=== PATIENT | male | born 1930 | race Caucasian/White ===

== ENCOUNTER 2018-01-02 10:32 | Emergency (ER) | payer MEDICARE ==
[~2018-01-02] VITALS: Ht 180.3 cm; Wt 89.0 kg
[~2018-01-02 10:32] MED LIST: ASPI81 PO; CLOP75 PO; FISH300C2 PO; METO50TA PO; TAB-TAB PO; VYTO10TA39 PO
[2018-01-02 11:03] VITALS: BP 148/69; PULSE 63; RESP 18; TEMP 97.6; O2SAT 98
--- NOTE | 2018-01-02 12:23 | RADRPT ---
EXAM DATE/TIME: 01/02/2018 12:14 [facility] COMPARISON: No previous studies available for comparison. INDICATIONS : Palpitations. Low blood pressure. Patient states no chest complaints. MEDICAL HISTORY : None. SURGICAL HISTORY : Stent 10 years ago. ENCOUNTER: Initial ACUITY: 1 day PAIN SCORE: 0/10 LOCATION: Bilateral chest FINDINGS: PA and lateral views of the chest demonstrate the lungs to be symmetrically aerated without evidence of mass, infiltrate or effusion. Mild emphysema. The cardiomediastinal contours are unremarkable. O sseous structures are intact. Degenerative changes thoracic spine. CONCLUSION: No acute disease. Cristofer Adams MD on January 02, 2018 at 12:21 Board Certified Radiologist. This report was verified electronically.
[2018-01-02 14:12] LABS: AUTOMATED NEUTROPHIL # 7.8 TH/MM3 (1.8-7.7); EOSINOPHIL % 0.3 % (0.0-4.0); HEMATOCRIT 42.7 % (39.0-51.0); HEMOGLOBIN 14.8 GM/DL (13.0-17.0); LYMPH % 14.5 % (9.0-44.0); LYMPHOCYTE # 1.4 TH/MM3 (1.0-4.8); MEAN CELL VOLUME 91.9 FL (80.0-100.0); MEAN CORPUSCULAR HEMOGLOBIN 31.9 PG (27.0-34.0); MEAN CORPUSCULAR HGB CONC 34.7 % (32.0-36.0); MEAN PLATELET VOLUME 9.7 FL (7.0-11.0); MONO % 6.1 % (0.0-8.0); MONOCYTE # 0.6 TH/MM3 (0-0.9); NEUT % 79.1 % (16.0-70.0); PLATELET COUNT 141 TH/MM3 (150-450); RED BLOOD COUNT 4.65 MIL/MM3 (4.50-5.90); RED CELL DISTRIBUTION WIDTH 14.5 % (11.6-17.2); WHITE BLOOD COUNT 9.9 TH/MM3 (4.0-11.0)
[2018-01-02 14:19] LABS: BILIRUBIN, URINE NEG (NEG); BLOOD, URINE NEG (NEG); GLUCOSE,URINE 1000 mg/dL (NEG); KETONE, URINE NEG (NEG); NITRITE,URINE NEG (NEG); PH, URINE 6.5 (5.0-8.5); TRANSITIONAL EPI CELLS, URINE <1 /hpf; URINE COLOR YELLOW (YELLW/STRAW); URINE LEUKOCYTE ESTERASE NEG (NEG)
[2018-01-02 14:29] LABS: BICARBONATE 31.5 MEQ/L (21.0-32.0); BLOOD UREA NITROGEN 23 MG/DL (7-18); CALCIUM 9.2 MG/DL (8.5-10.1); CHLORIDE 100 MEQ/L (98-107); CREATININE 1.06 MG/DL (0.60-1.30); GLOMERULAR FILTRATION RATE 66 ML/MIN (>89); GLUCOSE,RANDOM 383 MG/DL (74-106); MAGNESIUM 2.1 MG/DL (1.5-2.5); SODIUM (NA) 135 MEQ/L (136-145)
[2018-01-02 14:32] LABS: TROPONIN I LESS THAN 0.02 NG/ML (0.02-0.05)
[2018-01-02 14:39] LABS: PROTHROMBIN TIME - PATIENT 10.4 SEC (9.8-11.6)
[2018-01-02] MEDS ORDERED: GLIP5TAB8 PO (15:14)
[2018-01-02] MEDS ORDERED: METO50TA PO (15:14)
[2018-01-02] MEDS ORDERED: AMLO5TAB2 PO (15:14)
[2018-01-02] MEDS ORDERED: ATOR40TA16 PO (15:14)
[2018-01-02] MEDS ORDERED: LOSA50TA PO (15:14)
[2018-01-02] MEDS ORDERED: ASPI-516 CHEW (15:14)
--- NOTE | 2018-01-02 15:32 | PD ---
HPI Chief Complaint: Fall Time Seen by Provider: 15:10 Travel History International Travel<30 days: No Contact w/Intl Traveler<30days: No Traveled to known affect area: No History of Present Illness HPI 87 year old male presents to the emergency department for evaluation of 2 falls that occurred on Monday. He states he was walking and then he fell on his bottom, states his legs gave out. He denies any dizziness/lightheadedness before the first fall. He states that he was able to get up and the colicky was going to follow again. He tried additional box. However, before he made to the mailbox, he states he thought slightly lightheaded and his knees buckled causing him to fall. He does state he has been getting short of breath with exertion for approximately 2 weeks. Patient states that his neighbor had to help him up after the fall. He has been ambulatory since then. Patient denies any weakness or dizziness since the fall. Patient does state he had his head, but denies any LOC. No neck pain or back pain. No chest pain or abdominal pain. No vomiting. Patient states his school year nanny is Dr. Dos Santos. He had a stress test 2 weeks ago was told it was the same as a previous stress test. Patient denies any pain at this time. Moderate severity. PFSH Past Medical History Autoimmune Disease: No Blood Disorders: No Cancer: Yes (SKIN CA) Cardiovascular Problems: Yes (1 STENT 10 YEARS AGO) High Cholesterol: Yes Chest Pain: Yes Diabetes: Yes Patient Takes Glucophage: No (GLIPIZIED) Endocrine: No Genitourinary: No Hypertension: Yes Immune Disorder: No Implanted Vascular Access Dvce: Yes Musculoskeletal: No Neurologic: Yes Psychiatric: No Reproductive: No Respiratory: No Integumentary: Yes (ROSACEA) Myocardial Infarction: Yes Influenza Vaccination: Yes Past Surgical History Body Medical Devices: CARDIAC STENT Cardiac Surgery: Yes (CARDIAC STENT IN 01/21/08) Coronary Stent: Yes (DECEMBER 2007) Pacemaker: No Other Surgery: Yes (SKIN CA R EAR ) Social History Alcohol Use: Yes (VERY SELDOM; HOWEVER, DRANK 1 GLASS OF WINE 02/14/08) Tobacco Use: No Substance Use: No Allergies-Medications (Allergen,Severity, Reaction): Coded Allergies: No Known Allergies (Verified Allergy, Mild, 02/14/08) Reported Meds & Prescriptions Reported Meds & Active Scripts Active Reported Aspirin 81 Mg Chew 81 Mg CHEW DAILY Glipizide 5 Mg Tab 5 Mg PO TID Take 30 minutes before a meal Losartan (Losartan Potassium) 50 Mg Tab 50 Mg PO DAILY Amlodipine (Amlodipine Besylate) 5 Mg Tab 5 Mg PO DAILY Metoprolol Tartrate 50 Mg Tab 50 Mg PO DAILY Atorvastatin (Atorvastatin Calcium) 40 Mg Tab 40 Mg PO HS Review of Systems Except as stated in HPI: all other systems reviewed are Neg Physical Exam Narrative GENERAL: Well-nourished, well-developed elderly male patient, ambulatory. Afebrile. SKIN: Focused skin assessment warm/dry. HEAD: Normocephalic. Atraumatic. EYES: No scleral icterus. No injection or drainage. NECK: Supple, trachea midline. No JVD or lymphadenopathy. CARDIOVASCULAR: Regular rate and rhythm without murmurs, gallops, or rubs. Bilateral radial and pedal pulses are 2+. RESPIRATORY: Breath sounds equal bilaterally. No accessory muscle use. Lungs sounds are clear to auscultation. GASTROINTESTINAL: Abdomen soft, non-tender, nondistended. MUSCULOSKELETAL: No cyanosis, or edema. BACK: Nontender without obvious deformity. No CVA tenderness. Data Data Last Documented VS Vital Signs Date Time Temp Pulse Resp B/P (MAP) Pulse Ox O2 Delivery O2 Flow Rate FiO2 01/02/18 17:52 01/02/18 17:48 57 20 94 Room Air 01/02/18 11:03 97.6 Orders Orders Electrocardiogram (01/02/18 11:49) Basic Metabolic Panel (Bmp) (01/02/18 11:49) Complete Blood Count With Diff (01/02/18 11:49) Magnesium (Mg) (01/02/18 11:49) Ckmb (Isoenzyme) Profile (01/02/18 11:49) Troponin I (01/02/18 11:49) Act Partial Throm Time (Ptt) (01/02/18 11:49) Prothrombin Time / Inr (Pt) (01/02/18 11:49) Urinalysis - C+S If Indicated (01/02/18 11:49) Chest, Pa & Lat (01/02/18 11:49) Ct Brain W/O Iv Contrast(Rout) (01/02/18 ) Ct Cerv Spine W/O Contrast (01/02/18 ) Blood Glucose (01/02/18 17:07) Ed Discharge Order (01/02/18 17:33) Labs Laboratory Tests Test 01/02/18 13:24 White Blood Count 9.9 TH/MM3 Red Blood Count 4.65 MIL/MM3 Hemoglobin 14.8 GM/DL Hematocrit 42.7 % Mean Corpuscular Volume 91.9 FL Mean Corpuscular Hemoglobin 31.9 PG Mean Corpuscular Hemoglobin Concent 34.7 % Red Cell Distribution Width 14.5 % Platelet Count 141 TH/MM3 Mean Platelet Volume 9.7 FL Neutrophils (%) (Auto) 79.1 % Lymphocytes (%) (Auto) 14.5 % Monocytes (%) (Auto) 6.1 % Eosinophils (%) (Auto) 0.3 % Basophils (%) (Auto) 0.0 % Neutrophils # (Auto) 7.8 TH/MM3 Lymphocytes # (Auto) 1.4 TH/MM3 Monocytes # (Auto) 0.6 TH/MM3 Eosinophils # (Auto) 0.0 TH/MM3 Basophils # (Auto) 0.0 TH/MM3 CBC Comment DIFF FINAL Differential Comment Prothrombin Time 10.4 SEC Prothromb Time International Ratio 1.0 RATIO Activated Partial Thromboplast Time 24.3 SEC Urine Color YELLOW Urine Turbidity CLEAR Urine pH 6.5 Urine Specific [place] 1.021 Urine Protein NEG mg/dL Urine Glucose (UA) 1000 mg/dL Urine Ketones NEG mg/dL Urine Occult Blood NEG Urine Nitrite NEG Urine Bilirubin NEG Urine Urobilinogen LESS THAN 2.0 MG/DL Urine Leukocyte Esterase NEG Urine Transitional Epithelial Cells <1 /hpf Microscopic Urinalysis Comment CULT NOT INDICATED Blood Urea Nitrogen 23 MG/DL Creatinine 1.06 MG/DL Random Glucose 383 MG/DL Calcium Level 9.2 MG/DL Magnesium Level 2.1 MG/DL Sodium Level 135 MEQ/L Potassium Level 4.4 MEQ/L Chloride Level 100 MEQ/L Carbon Dioxide Level 31.5 MEQ/L Anion Gap 4 MEQ/L Estimat Glomerular Filtration Rate 66 ML/MIN Total Creatine Kinase 48 U/L Troponin I LESS THAN 0.02 NG/ML MDM Medical Decision Making Medical Screen Exam Complete: Yes Emergency Medical Condition: Yes Medical Record Reviewed: Yes Interpretation(s) Last Impressions Chest X-Ray 01/02/18 1149 Signed Impressions: Service Date/Time: Tuesday, January 02, 2018 12:14 - CONCLUSION: No acute disease. Cristofer Adams MD Head CT 01/02/18 0000 Signed Impressions: Service Date/Time: Tuesday, January 02, 2018 16:11 - CONCLUSION: No acute disease. Ferny Pabon Jr., MD Cervical Spine CT 01/02/18 0000 Signed Impressions: Service Date/Time: Tuesday, January 02, 2018 16:11 - CONCLUSION: 1. No fracture or dislocation. 2. Degenerative changes as detailed above. Ferny Pabon Jr., MD Differential Diagnosis Dysrhythmia versus electrolyte abnormality versus dehydration versus intracranial abnormality Narrative Course 87-year-old male presents to the emergency department for evaluation after he fell twice on Monday. He states he called Dr. Dos Santos who told him to come to the emergency department for evaluation. EKG shows sinus bradycardia with first-degree AV block and frequent PVCs and PACs. CBC shows no acute abnormality. BMP shows hyperglycemia at 383. CK is 48. Troponin is less than 0.02. Coags are unremarkable. UA shows no acute abnormality. Shows no acute disease. CT of the brain and cervical spine are ordered and pending. CT of the brain shows no acute disease. CT of the cervical spine shows no fracture or dislocation. Patient's school year nanny was paged for consultation. I spoke with Dr. Miller. He did not have any further to add. I discussed the case with my attending physician, Dr. Dennison, who examined patient as well. Admission was offered to patient, but he declines stating he would like to go home. He is instructed to hold metoprolol and follow up with Dr. Dos Santos tomorrow. He verbalizes agreement and understanding. Diagnosis Primary Impression: Fall Qualified Codes: W19.XXXA - Unspecified fall, initial encounter Additional Impression: Bradycardia on ECG Referrals: Marcin Dos Santos MD 1 day Patient Instructions: Bradycardia (ED), Fall Prevention (ED), General Instructions Additional Instructions: Hold Metoprolol. Call Dr. Dos Santos's office in the morning. Return to the emergency department for any acute, worsening of symptoms. Med/Other Pt SpecificInfo: No Change to Meds Disposition: 01 DISCHARGE HOME Condition: Stable Erika MominP Jan 02, 2018 15:32
--- NOTE | 2018-01-02 16:25 | RADRPT ---
EXAM DATE/TIME: 01/02/2018 16:11 [facility] COMPARISON: No previous studies available for comparison. INDICATIONS : Fall. Head and neck pain. RADIATION DOSE: 38.32 CTDIvol (mGy) MEDICAL HISTORY : Cardiovascular disease. Hypertension. SURGICAL HISTORY : None. ENCOUNTER: Initial ACUITY: 4 - 6 days PAIN SCALE: 3/10 LOCATION: Bilateral cranial TECHNIQUE: Multiple contiguous axial images were obtained of the head. Using automated exposure control and adj ustment of the mA and/or kV according to patient size, radiation dose was kept as low as reasonably a chievable to obtain optimal diagnostic quality images. DICOM format image data is available electro nically for review and comparison. FINDINGS: CEREBRUM: The ventricles are normal for age. No evidence of midline shift, mass lesion, hemorrhage or acute in farction. No extra-axial fluid collections are seen. POSTERIOR FOSSA: The cerebellum and brainstem are intact. The 4th ventricle is midline. The cerebellopontine angle i s unremarkable. EXTRACRANIAL: The visualized portion of the orbits is intact. SKULL: The calvaria is intact. No evidence of skull fracture. CONCLUSION: No acute disease. Ferny Pabon Jr., MD on January 02, 2018 at 16:22 Board Certified Radiologist. This report was verified electronically.
--- NOTE | 2018-01-02 16:40 | RADRPT ---
EXAM DATE/TIME: 01/02/2018 16:11 [facility] COMPARISON: No previous studies available for comparison. INDICATIONS : Fall. Head and neck pain. RADIATION DOSE: 16.53 CTDIvol (mGy) MEDICAL HISTORY : Cardiovascular disease. Hypertension. SURGICAL HISTORY : None. ENCOUNTER: Initial ACUITY: 4 - 6 days PAIN SCALE: 3/10 LOCATION: Bilateral neck TECHNIQUE: Volumetric scanning of the cervical spine was performed. Multiplanar reconstructions in the sagittal, coronal and oblique axial planes were performed. Using automated exposure control and adjustment o f the mA and/or kV according to patient size, radiation dose was kept as low as reasonably achievable to obtain optimal diagnostic quality images. DICOM format image data is available electronically f or review and comparison. FINDINGS: VERTEBRAE: Normal vertebral body height. ALIGNMENT: No evidence of subluxation. C2-C3: The bony spinal canal is normal in size. No evidence of disc bulge or herniation. The neural forami na are bilaterally patent. C3-C4: There is disc space narrowing without bulge or protrusion. Central canal and lateral recesses are pat ent. Bony uncovertebral hypertrophy generates moderate right and left neural foraminal narrowing. C4-C5: There is a broad-based disc bulge. No central canal stenosis. Prominent bony uncovertebral hypertroph y more pronounced on the right. Bilateral moderate neural foraminal narrowing. C5-C6: There is a broad-based disc osteophyte complex eccentric to the right. This narrows the right lateral recess and abuts the ventral portion of the cord. Left lateral recess is patent. Prominent bony unco vertebral hypertrophy on the right degenerating moderate neural foraminal narrowing. Mild neural fora jose alberto narrowing on the left. C6-C7: A broad-based disc osteophyte complex slightly eccentric to the left. No abutment of the cord or cent ral canal stenosis. Moderate bilateral neural foraminal narrowing. C7-T1: The bony spinal canal is normal in size. No evidence of disc bulge or herniation. The neural forami na are bilaterally patent. CONCLUSION: 1. No fracture or dislocation. 2. Degenerative changes as detailed above. Ferny Pabon Jr., MD on January 02, 2018 at 16:28 Board Certified Radiologist. This report was verified electronically.
[2018-01-02 17:48] VITALS: BP 138/66; PULSE 57; RESP 20; O2SAT 94
--- NOTE | 2018-01-02 19:26 | PD ---
Physical Exam Date Seen by Provider: Jan 02, 2018 Time Seen by Provider: 16:00 Narrative I, Dr. Dennison, have reviewed the advance practice practitioner's documentation and am in agreement, met with the patient face to face, made the diagnosis, and the medical decision making was done by me. *My assessment and Findings: Patient was seen and evaluated with nurse practitioner, please see notes for further details. He apparently is having intermittent episodes of leg weakness and falls, but nothing today. He denies any significant dizziness, chest pains, shortness of breath, or other symptoms. He has no focal neurological deficits on exam. EKG shows sinus bradycardia at a rate of 50 bpm with frequent PACs. Laboratory Tests Test 01/02/18 13:24 Platelet Count 141 TH/MM3 (150-450) Neutrophils (%) (Auto) 79.1 % (16.0-70.0) Neutrophils # (Auto) 7.8 TH/MM3 (1.8-7.7) Urine Glucose (UA) 1000 mg/dL (NEG) Blood Urea Nitrogen 23 MG/DL (7-18) Random Glucose 383 MG/DL (74-106) Sodium Level 135 MEQ/L (136-145) Anion Gap 4 MEQ/L (5-15) Estimat Glomerular Filtration Rate 66 ML/MIN (>89) Troponin I LESS THAN 0.02 NG/ML Last 24 hours Impressions Chest X-Ray 01/02/18 1149 Signed Impressions: Service Date/Time: Tuesday, January 02, 2018 12:14 - CONCLUSION: No acute disease. Cristofer Adams MD Head CT 01/02/18 0000 Signed Impressions: Service Date/Time: Tuesday, January 02, 2018 16:11 - CONCLUSION: No acute disease. Ferny Pabon Jr., MD Cervical Spine CT 01/02/18 0000 Signed Impressions: Service Date/Time: Tuesday, January 02, 2018 16:11 - CONCLUSION: 1. No fracture or dislocation. 2. Degenerative changes as detailed above. Ferny Pabon Jr., MD X-rays and CAT scans did not show any signs of acute processes. His EKG does show sinus bradycardia which it is uncertain whether could be causing his episodes of fall or not. Case was briefly discussed with Dr. Miller who is covering for patient's social work professor, but he does not feel that this is likely to be cardiac. Lab work was fairly unremarkable. At this point, I have discussed the findings with the patient have offered to admit the patient as an observation for further cardiac evaluation versus outpatient follow-up. Patient apparently follows up fairly closely with his social work professor and had a cardiac workup just a few weeks ago, he is declining to stay at this time stating he feels fine. We will release him but he will need follow-up with cardiology. Meanwhile, considering his bradycardia, we will hold his metoprolol. The plan was discussed with him he states understanding. Data Data Last Documented VS Vital Signs Date Time Temp Pulse Resp B/P (MAP) Pulse Ox O2 Delivery O2 Flow Rate FiO2 01/02/18 17:52 01/02/18 17:48 57 20 94 Room Air 01/02/18 11:03 97.6 Orders Orders Electrocardiogram (01/02/18 11:49) Basic Metabolic Panel (Bmp) (01/02/18 11:49) Complete Blood Count With Diff (01/02/18 11:49) Magnesium (Mg) (01/02/18 11:49) Ckmb (Isoenzyme) Profile (01/02/18 11:49) Troponin I (01/02/18 11:49) Act Partial Throm Time (Ptt) (01/02/18 11:49) Prothrombin Time / Inr (Pt) (01/02/18 11:49) Urinalysis - C+S If Indicated (01/02/18 11:49) Chest, Pa & Lat (01/02/18 11:49) Ct Brain W/O Iv Contrast(Rout) (01/02/18 ) Ct Cerv Spine W/O Contrast (01/02/18 ) Blood Glucose (01/02/18 17:07) Ed Discharge Order (01/02/18 17:33) Labs Laboratory Tests Test 01/02/18 13:24 White Blood Count 9.9 TH/MM3 Red Blood Count 4.65 MIL/MM3 Hemoglobin 14.8 GM/DL Hematocrit 42.7 % Mean Corpuscular Volume 91.9 FL Mean Corpuscular Hemoglobin 31.9 PG Mean Corpuscular Hemoglobin Concent 34.7 % Red Cell Distribution Width 14.5 % Platelet Count 141 TH/MM3 Mean Platelet Volume 9.7 FL Neutrophils (%) (Auto) 79.1 % Lymphocytes (%) (Auto) 14.5 % Monocytes (%) (Auto) 6.1 % Eosinophils (%) (Auto) 0.3 % Basophils (%) (Auto) 0.0 % Neutrophils # (Auto) 7.8 TH/MM3 Lymphocytes # (Auto) 1.4 TH/MM3 Monocytes # (Auto) 0.6 TH/MM3 Eosinophils # (Auto) 0.0 TH/MM3 Basophils # (Auto) 0.0 TH/MM3 CBC Comment DIFF FINAL Differential Comment Prothrombin Time 10.4 SEC Prothromb Time International Ratio 1.0 RATIO Activated Partial Thromboplast Time 24.3 SEC Urine Color YELLOW Urine Turbidity CLEAR Urine pH 6.5 Urine Specific [place] 1.021 Urine Protein NEG mg/dL Urine Glucose (UA) 1000 mg/dL Urine Ketones NEG mg/dL Urine Occult Blood NEG Urine Nitrite NEG Urine Bilirubin NEG Urine Urobilinogen LESS THAN 2.0 MG/DL Urine Leukocyte Esterase NEG Urine Transitional Epithelial Cells <1 /hpf Microscopic Urinalysis Comment CULT NOT INDICATED Blood Urea Nitrogen 23 MG/DL Creatinine 1.06 MG/DL Random Glucose 383 MG/DL Calcium Level 9.2 MG/DL Magnesium Level 2.1 MG/DL Sodium Level 135 MEQ/L Potassium Level 4.4 MEQ/L Chloride Level 100 MEQ/L Carbon Dioxide Level 31.5 MEQ/L Anion Gap 4 MEQ/L Estimat Glomerular Filtration Rate 66 ML/MIN Total Creatine Kinase 48 U/L Troponin I LESS THAN 0.02 NG/ML [facility] Medical Record Reviewed: Yes Supervised Visit with LADY: Yes Diagnosis Primary Impression: Fall Additional Impression: Bradycardia on ECG Referrals: Marcin Dos Santos MD 1 day Patient Instructions: General Instructions, Bradycardia (ED), Fall Prevention ( ED) Departure Forms: Tests/Procedures Additional Instruction: Hold Metoprolol. Call Dr. Dos Santos's office in the morning. Return to the emergency department for any acute, worsening of symptoms. Disposition: 01 DISCHARGE HOME Condition: Stable Demetrice Dennison MD Jan 02, 2018 19:26
--- NOTE | 2018-01-03 14:23 | EKG ---
Date Performed: 01/02/2018 Time Performed: 15:15:27 PTAGE: 87 years EKG: SINUS BRADYCARDIA WITH OCCASIONAL PACS AND ONE PVC PREVIOUS TRACING : 02/15/2008 07.32 DOCTOR: Johnson Holliday Interpretating Date/Time 01/03/2018 14:22:03
== END 2018-01-02 18:03 | disposition home or self-care (01) ==
LOC: NEPC 10:32
DX: R00.1 Bradycardia, unspecified (principal); E11.65 Type 2 diabetes mellitus with hyperglycemia; E78.00 Pure hypercholesterolemia, unspecified; I10 Essential (primary) hypertension; Z79.84 Long term (current) use of oral hypoglycemic drugs
CPT/HCPCS: 70450; 71046; 72125; 80048; 81001; 82550; 83735; 84484; 85025; 85610; 85730; 93005; 99285